=== PATIENT | female | born 1960 | race Caucasian/White ===

== ENCOUNTER 2018-03-08 18:04 | Emergency (ER) | payer MEDICAID ==
[~2018-03-08] VITALS: Ht 162.6 cm; Wt 56.8 kg
[~2018-03-08 18:04] MED LIST: FAMO20TA44 PO; IBUP-1984 PO; LORA1TAB PO; OMEP20CA10 PO; SUCR1ORA2 PO
[2018-03-08] MEDS ORDERED: LORazepam 2 mg/ml vial IV ONE ×4 (18:25→20:10)
[2018-03-08] MEDS ORDERED: ondansetron/PF 4mg/2ml inj IV ONE (18:25)
[2018-03-08] MEDS ORDERED: normal saline 1000ML IV soln IV ONE (18:25)
[2018-03-08 18:27] LABS: CLARITY,URINE SLIGHTLY CLOUDY (Clear); COLOR,URINE YELLOW (Yellow); GLUCOSE, URINE NEGATIVE (Neg); KETONES,URINE 15 mg/dl (Neg); LEUKOCYTE ESTERASE ,URINE NEGATIVE (Neg); NITRITES, URINE NEGATIVE (Neg); OCCULT BLOOD,URINE NEGATIVE (Neg); PROTEIN,URINE TRACE mg/dl (Neg)
[2018-03-08 18:28] LABS: UA COLLECTION TYPE CLN CATCH MIDSTREAM
[2018-03-08 18:32] LABS: MUCUS STRANDS MODERATE /LPF (Neg); SQUAMOUS EPITHELIAL CELL,UR MODERATE /LPF (FEW)
[2018-03-08 18:33] LABS: BACTERIA,URINE FEW /HPF (Neg); RBC,URINE 0-2 /HPF (0-2); WBC,URINE 0-4 /HPF (0-4)
[2018-03-08 18:57] LABS: PROTHROMBIN TIME 10.7 SECONDS (9.0-12.0)
[2018-03-08 18:59] LABS: HEMATOCRIT 32.2 % (35.0-45.0); HEMOGLOBIN 10.1 g/dl (12.0-16.0); MEAN CORPUSCULAR HEMOGLOBIN 23.7 PG (27.0-31.0); MEAN CORPUSCULAR HGB CONC 31.4 % (33.0-36.5); MEAN CORPUSCULAR VOLUME 75.4 FL (78-98); MEAN PLATELET VOLUME 7.1 FL (7.4-10.4); PLATELET COUNT 104 X10'3 (140-440); RED BLOOD COUNT 4.27 X10'6 (4.20-5.60); RED CELL DISTRIBUTION WIDTH 25.7 % (11.5-14.5); WHITE BLOOD COUNT 3.4 X10'3 (4.5-11.0)
[2018-03-08 19:03] LABS: ALANINE AMINOTRANSFERASE 55 U/L (12-78); ALBUMIN 4.4 G/DL (3.4-5.0); ALBUMIN/GLOBULIN RATIO 1.2 (1.1-1.5); ALKALINE PHOSPHATASE 99 IU/L (46-116); AMYLASE 86 U/L (25-115); ANION GAP 17 (8-16); ASPARTATE AMINO TRANSFERASE 101 U/L (10-37); BLOOD UREA NITROGEN 7 MG/DL (7-18); BUN/CREATININE RATIO 11.1 (6.6-38.0); CALCIUM 9.8 MG/DL (8.5-10.1); CHLORIDE 100 MMOL/L (99-107); CREATININE 0.63 MG/DL (0.40-0.90); ETHANOL 0.073 GM/DL (0.0-0.010); GLUCOSE 115 MG/DL (70-104); LIPASE 164 U/L (73-393); POTASSIUM 3.3 MMOL/L (3.5-5.1); SODIUM 140 MMOL/L (135-145); TOTAL CARBON DIOXIDE 23.2 MMOL/L (24-32); TOTAL PROTEIN 8.1 G/DL (6.4-8.2); eGFR > 90 ML/MIN
[2018-03-08 19:14] VITALS: BP 145/98
[2018-03-08] MEDS ORDERED: potassium Cl oral solution 20 MEQ/15 ML PO ONE (19:25)
[2018-03-08 19:44] LABS: ANISOCYTOSIS 3+; NUCLEATED RED BLOOD CELLS 1 /100WBC (0-0); PLATELET ESTIMATE DECREASED; TOTAL CELLS COUNTED 100
[2018-03-08 19:46] LABS: ACANTHOCYTES FEW; HYPOCHROMASIA 1+; POIKILOCYTOSIS 1+; TARGET CELLS 1+
[2018-03-08 19:59] LABS: CREATINE KINASE 76 U/L (26-192)
[2018-03-08] MEDS ORDERED: folic acid 1mg/0.2ml inj IV ONE (20:10)
[2018-03-08] MEDS ORDERED: LORA-269 PO (20:10)
[2018-03-08] MEDS ORDERED: thiamine 100mg/ml 2ml inj. IV ONE (20:10)
== END 2018-03-08 21:08 | disposition home or self-care (01) ==
LOC: ER 18:04
DX: F10.239 Alcohol dependence with withdrawal, unspecified (principal); Z98.890 Other specified postprocedural states; Z88.5 Allergy status to narcotic agent; Z79.899 Other long term (current) drug therapy; Y90.0 Blood alcohol level of less than 20 mg/100 ml
CPT/HCPCS: 36415; 80053; 80320; 81001; 82150; 82550; 83605; 83690; 85025; 85610; 93005; 96361; 96374; 96375; 96376; 99291; J2060; J2405; J3411; J3490; J7030

== ENCOUNTER 2020-09-25 06:46 | Day surgery (SDC) | payer MEDICAID ==
[~2020-09-25] VITALS: Ht 162.6 cm; Wt 60.6 kg
[~2020-09-25 06:46] MED LIST changes: +ASPI-1 PO; -FAMO20TA44 PO; +FLUO-1 PO; -IBUP-1984 PO; -LORA1TAB PO; -OMEP20CA10 PO; -SUCR1ORA2 PO; +TRAZ-251 PO
[2020-09-25] MEDS ORDERED: albumin 25% 100mL bottle x 1 IV PRN (07:10)
[2020-09-25 08:07] VITALS: BP 109/78
[2020-09-25] MEDS ORDERED: GABA-534 PO (08:30)
[2020-09-25 09:04] VITALS: BP 109/78
== END 2020-09-25 09:04 | disposition home or self-care (01) ==
LOC: SSTAY O 06:46
PROVIDERS: ATTEND Radiology Vascular & Interventional Radiology
DX: K70.31 Alcoholic cirrhosis of liver with ascites (principal); R14.0 Abdominal distension (gaseous); Z96.659 Presence of unspecified artificial knee joint; Z72.89 Other problems related to lifestyle; Z88.5 Allergy status to narcotic agent; Z79.82 Long term (current) use of aspirin; Z79.899 Other long term (current) drug therapy
CPT/HCPCS: 76705

== ENCOUNTER 2020-12-09 12:23 | Day surgery (SDC) | payer MEDICAID ==
[2020-12-02 15:50] LABS: BASOPHILS % (AUTO) 0.6 % (0-1); EOSINOPHILS % (AUTO) 0.7 % (0-6); LYMPHOCYTES # (AUTO) 1.4 X10'3 (1.1-4.8); LYMPHOCYTES % (AUTO) 26.3 % (21-51); MEAN CORPUSCULAR HGB CONC 33.9 g/dL (33.0-36.5); MEAN CORPUSCULAR VOLUME 94.6 FL (78-98); MEAN PLATELET VOLUME 7.3 FL (7.4-10.4); MONOCYTES # (AUTO) 0.6 X10'3 (0-0.9); NEUTROPHILS # (AUTO) 3.2 X10'3 (1.8-7.7); NEUTROPHILS % (AUTO) 60.4 % (42-75); PRE OP HEMATOCRIT 38.5 % (35.0-45.0); PRE OP PLATELET COUNT 138 X10'3 (140-440); RED BLOOD COUNT 4.07 X10'6 (4.20-5.60); RED CELL DISTRIBUTION WIDTH 15.3 % (11.5-14.5)
[2020-12-02 15:52] LABS: PRE OP INR 1.2 INR; PRE OP PROTIME 12.1 SECONDS (9.0-12.0)
[2020-12-02 15:57] LABS: ALBUMIN/GLOBULIN RATIO 0.9 (1.1-1.5); ALKALINE PHOSPHATASE 129 IU/L (46-116); BLOOD UREA NITROGEN 9 MG/DL (7-18); CALCIUM 9.4 MG/DL (8.5-10.1); CHLORIDE 103 MMOL/L (99-107); PRE OP ALT 31 U/L (30-65); PRE OP ANION GAP 7 (8-16); PRE OP AST 36 U/L (10-37); PRE OP BILIRUB, TOTAL 0.9 MG/DL (0.0-1.0); PRE OP GLUCOSE 74 MG/DL (70-104); PRE OP POTASSIUM 3.7 MMOL/L (3.4-5.1); PRE OP SODIUM 138 MMOL/L (135-145); TOTAL CARBON DIOXIDE 27.7 MMOL/L (24-32); TOTAL PROTEIN 8.3 G/DL (6.4-8.2); eGFR > 90 ML/MIN
[~2020-12-09] VITALS: Ht 162.6 cm; Wt 62.1 kg
[2020-12-09] VITALS (12 sets, daily range): BP systolic 119–140; BP diastolic 70–83
[~2020-12-09 12:23] MED LIST changes: -ASPI-1 PO; -FLUO-1 PO; +GABA-534 PO; +acetaminophen 1,000mg/100ml IV 100 ML IV ONE; +ceFAZolin 2gm in dextrose, iso 50 ML IV ONE; +famotidine 20mg tablet PO ONE; +ringers solution, lacted 1,000 ML IV SCH
[2020-12-09] MEDS ORDERED: LIDOcaine 1% (10mg/ml) 2ml vial ONE (12:54)
[2020-12-09] MEDS ORDERED: LIDOcaine 1% 30ml preserv. free vial ONE (13:07)
[2020-12-09] MEDS ORDERED: BUPIVAcaine/PF 2.5mg/ml (0.25%) 10ml vial ONE (13:07)
[2020-12-09] MEDS ORDERED: BUPIVAcaine/PF 2.5 mg/ml (0.25%) 30ml vial ONE (13:08)
[2020-12-09] MEDS ORDERED: BUPIVACAINE liposomal/PF 13.3 MG/ML vial IM ONE (13:08)
[2020-12-09] MEDS ORDERED: ondansetron/PF 4mg/2ml inj IV PRN (14:25)
[2020-12-09] MEDS ORDERED: ringers solution, lacted 1,000 ML IV SCH (14:25)
[2020-12-09] MEDS ORDERED: morphine 4 MG/ML inj SYRINge IV PRN (14:25)
[2020-12-09] MEDS ORDERED: morphine 2 MG/ML inj. syringe IV PRN (14:25)
[2020-12-09] MEDS ORDERED: meperidine/PF 25mg/ml syringe IV PRN ×3 (14:25)
[2020-12-09] MEDS ORDERED: proCHLORperazine 10 MG/2 ml inj IV PRN (14:25)
[2020-12-09] MEDS ORDERED: ondansetron/PF 4mg/2ml inj ONE (15:10)
[2020-12-09] MEDS ORDERED: sevoflurane 250ml liquid IH ONE (15:10)
[2020-12-09] MEDS ORDERED: fentaNYL/PF 50MCG/1 ML 2ML syringe ONE (15:15)
[2020-12-09] MEDS ORDERED: midazolam 2 mg/2 ml injection ONE (15:15)
[2020-12-09] MEDS ORDERED: propofol inj 20 ML IV ONE (15:40)
[2020-12-09] MEDS ORDERED: LIDOcaine 2% (20mg/ml) 5ml vial ONE (15:40)
--- NOTE | 2020-12-09 16:00 | NUR ---
Received from OR via [facility] , accompanied by Anesthesiologist DR CARR and report given by Anesthesiologist. PATIENT WAKING UP, DENIES PAIN, V/S WNL, NEUROVASCULAR CHECKS INTACT, 20G PIV LUE, SCD ON, DERMABOND TO SMALL INCISION NEAR BELLYBUTTON OF ABDOMEN-CDI.
[2020-12-09] MEDS ORDERED: oxyCODONE/APAP 10/325mg tablet PO PRN (16:10)
[2020-12-09] MEDS ORDERED: oxyCODONE/APAP 5-325mg tablet PO PRN (16:10)
--- NOTE | 2020-12-09 17:40 | NUR ---
PATIENT A&OX4, PAIN MANAGEABLE-GIVEN 1 PO PERCOCET FOR RIDE HOME, V/S WNL, NEUROVASCULAR CHECKS INTACT, 20G PIV LUE D/C, SCD OFF, DERMABOND TO ABD SITE-CDI. PT ABLE TO AMBULATE TO BATHROOM TO VOID W/O DIFFICULTY PRIOR TO D/C. I HAVE REVIEWED D/C INSTRUCTIONS (PT SENT WITH PAPER SCRIPT FOR PAIN MEDS) WITH PATIENT WHO HAS VERBALIZED UNDERSTANDING. PATIENT WAS D/C HOME WITH ALL BELONGINGS AND FAMILY GAVE TRANSPORT HOME.
== END 2020-12-09 17:40 | disposition home or self-care (01) ==
LOC: PAS 12:23
PROVIDERS: ATTEND Surgery
DX: K43.6 Other and unspecified ventral hernia with obstruction, without gangrene (principal); F10.20 Alcohol dependence, uncomplicated; K74.60 Unspecified cirrhosis of liver; F41.9 Anxiety disorder, unspecified; Z72.89 Other problems related to lifestyle; Z88.5 Allergy status to narcotic agent; Z96.651 Presence of right artificial knee joint; Z20.822 Contact with and (suspected) exposure to COVID-19; Z98.890 Other specified postprocedural states; Z79.01 Long term (current) use of anticoagulants; Z79.899 Other long term (current) drug therapy; Z87.19 Personal history of other diseases of the digestive system; Z80.1 Family history of malignant neoplasm of trachea, bronchus and lung
CPT/HCPCS: 36415; 49561; 80053; 82948; 85025; 85610; 85730; 87635; 93005; C9290; J0131; J2001; J2175; J2250; J2405; J2704; J3010; J3490; A4215; A4618; A7000; J7120

== ENCOUNTER 2021-01-18 06:22 | Inpatient (IN) | payer MEDICAID ==
[~2021-01-18] VITALS: Ht 162.6 cm; Wt 63.6 kg
[~2021-01-18 06:22] MED LIST changes: -acetaminophen 1,000mg/100ml IV 100 ML IV ONE; -ceFAZolin 2gm in dextrose, iso 50 ML IV ONE; -famotidine 20mg tablet PO ONE; -ringers solution, lacted 1,000 ML IV SCH
[2021-01-18] MEDS ORDERED: ondansetron/PF 4mg/2ml inj IV ONE (07:00)
[2021-01-18] MEDS ORDERED: magnesium 2GM in 50ml NS 50 ML IV ONE (07:00)
[2021-01-18] MEDS ORDERED: normal saline 1000ML IV soln IVB ONE (07:00)
[2021-01-18] MEDS ORDERED: thiamine inj. 100 MG in normal saline 100ml IV soln 99 ML IV ONE (07:00)
[2021-01-18 07:27] LABS: PARTIAL THROMBOPLASTIN TIME 27 SECONDS (22-32)
[2021-01-18 07:29] LABS: ALANINE AMINOTRANSFERASE 85 U/L (12-78); ALBUMIN 3.4 G/DL (3.4-5.0); ALBUMIN/GLOBULIN RATIO 0.9 (1.1-1.5); ALKALINE PHOSPHATASE 171 IU/L (46-116); ANION GAP 16 (8-16); ASPARTATE AMINO TRANSFERASE 147 U/L (10-37); BILIRUBIN,TOTAL 1.3 MG/DL (0.1-1.0); BLOOD UREA NITROGEN 18 MG/DL (7-18); BUN/CREATININE RATIO 26.1 (6.6-38.0); CALCIUM 8.8 MG/DL (8.5-10.1); CHLORIDE 103 MMOL/L (99-107); CREATININE 0.69 MG/DL (0.40-0.90); ETHANOL 0.275 GM/DL (0.0-0.010); GLUCOSE 154 MG/DL (70-104); LIPASE 157 U/L (73-393); MAGNESIUM 1.6 MG/DL (1.5-2.4); POTASSIUM 3.7 MMOL/L (3.5-5.1); SODIUM 142 MMOL/L (135-145); TOTAL CARBON DIOXIDE 22.7 MMOL/L (24-32); TOTAL PROTEIN 7.4 G/DL (6.4-8.2); eGFR 86 ML/MIN
[2021-01-18] MEDS ORDERED: phenobarbital inj 260 MG in normal saline 100ml IV soln 100 ML IV ONE (07:30)
[2021-01-18] MEDS ORDERED: octreotide inj. 1,250 MCG in normal saline 250ml IV soln 250 ML IV ONE (07:30)
[2021-01-18 07:40] LABS: EOSINOPHILS % (AUTO) 0.3 % (0-6); HEMATOCRIT 32.4 % (35.0-45.0); LYMPHOCYTES % (AUTO) 20.5 % (21-51); MEAN CORPUSCULAR HEMOGLOBIN 32.6 PG (27.0-31.0); MEAN CORPUSCULAR HGB CONC 33.9 g/dL (33.0-36.5); MEAN CORPUSCULAR VOLUME 96.4 FL (78-98); MEAN PLATELET VOLUME 7.9 FL (7.4-10.4); MONOCYTES # (AUTO) 0.6 X10'3 (0-0.9); MONOCYTES % (AUTO) 12.2 % (2-12); NEUTROPHILS # (AUTO) 3.1 X10'3 (1.8-7.7); PLATELET COUNT 74 X10'3 (140-440); RED BLOOD COUNT 3.36 X10'6 (4.20-5.60); RED CELL DISTRIBUTION WIDTH 15.3 % (11.5-14.5); WHITE BLOOD COUNT 4.7 X10'3 (4.5-11.0)
[2021-01-18] MEDS ORDERED: pantoprazole 40 MG vial IV ONE (08:00)
[2021-01-18] MEDS ORDERED: famotidine/PF 10 mg/ml inj IV ONE (08:00)
[2021-01-18] MEDS ORDERED: thiamine inj. 100 MG in normal saline 100ml IV soln 100 ML IV ONE ×2 (08:00→09:15)
[2021-01-18 08:41] LABS: COLOR,URINE YELLOW (Yellow); GLUCOSE, URINE NEGATIVE (Neg); KETONES,URINE 15 mg/dl (Neg); LEUKOCYTE ESTERASE ,URINE SMALL (Neg); NITRITES, URINE NEGATIVE (Neg); OCCULT BLOOD,URINE NEGATIVE (Neg); PH,URINE 6.5 (4.8-8.0); PROTEIN,URINE NEGATIVE (Neg); URINE HCG NEGATIVE (NEG)
[2021-01-18 08:43] LABS: CLARITY,URINE SLIGHTLY CLOUDY (Clear); UA COLLECTION TYPE VOIDED
[2021-01-18 08:55] LABS: BACTERIA,URINE 1+ /HPF (Neg); MUCUS STRANDS FEW /LPF (Neg); RBC,URINE NONE SEEN /HPF (0-2); SQUAMOUS EPITHELIAL CELL,UR MODERATE /LPF (FEW); TRANSITIONAL EPI CELLS,URINE FEW /HPF
[2021-01-18] MEDS ORDERED: LORazepam 2 mg/ml vial IV PRN (09:15)
[2021-01-18] MEDS ORDERED: magnesium 4gm in 100ml NS 100 ML IV PRN (09:15)
[2021-01-18] MEDS ORDERED: ondansetron/PF 4mg/2ml inj IV PRN (09:15)
[2021-01-18] MEDS ORDERED: haloperidol lactate 5mg/ml inj IM PRN (09:15)
[2021-01-18] MEDS ORDERED: mag hydrox/Alum hydrox/simeth 30ml oral suspension PO PRN (09:15)
[2021-01-18] MEDS ORDERED: potassium Cl 20 mEq SR tablet PO PRN ×2 (09:15)
[2021-01-18] MEDS ORDERED: acetaminophen 325mg tablet PO PRN (09:15)
[2021-01-18] MEDS ORDERED: magnesium 2GM in 50ml NS 50 ML IV PRN (09:15)
[2021-01-18] MEDS ORDERED: magnesium hydroxide 30ml (MOM) UD suspension PO PRN (09:15)
[2021-01-18] MEDS ORDERED: potassium Cl 40MEQ/1/2NS 520ml 520 ML IV PRN ×2 (09:15)
[2021-01-18] MEDS ORDERED: proCHLORperazine 10 MG/2 ml inj IV ONE (09:30)
[2021-01-18] MEDS ORDERED: folic acid 1mg tablet PO SCH (10:30)
[2021-01-18] MEDS ORDERED: PANT20TA18 PO (10:45)
[2021-01-18] MEDS: pantoprazole 40MG/NS 100ML BAG 100 ML IV SCH ×4 (11:00→21:00)
[2021-01-18] MEDS ORDERED: pantoprazole 40MG/NS 100ML BAG 100 ML IV SCH (11:00)
[2021-01-18] MEDS: folic acid 1mg/0.2ml inj IV SCH (11:00)
--- NOTE | 2021-01-18 11:00 | NUR ---
PATIENT AXOX4, QUIROGA, STARTED VOMITING SCANT BURGUNDY VOMIT, BUT AN EMESIS BAG WITH BURGUNDY AND JUAN BLOOD WAS IN ROOM: ABOUT 300ML
[2021-01-18] MEDS: proCHLORperazine 10 MG/2 ml inj IV PRN ×2 (11:06→20:18)
[2021-01-18] MEDS: LORazepam 2 mg/ml vial IV PRN ×2 (11:06→20:18)
[2021-01-18 12:50] LABS: HEMATOCRIT 27.1 % (35.0-45.0); MEAN CORPUSCULAR HEMOGLOBIN 32.7 PG (27.0-31.0); MEAN CORPUSCULAR HGB CONC 33.2 g/dL (33.0-36.5); MEAN CORPUSCULAR VOLUME 98.7 FL (78-98); RED BLOOD COUNT 2.74 X10'6 (4.20-5.60); RED CELL DISTRIBUTION WIDTH 15.5 % (11.5-14.5); WHITE BLOOD COUNT 3.4 X10'3 (4.5-11.0)
[2021-01-18 12:55] LABS: PLATELET COUNT 44 X10'3 (140-440)
--- NOTE | 2021-01-18 19:56 | NUR ---
PHONE REPORT TO CIARAN GREEN ORTHO. PATIENT TO GO TO ROOM 0359Q WITH RN AND ON MONITOR
--- NOTE | 2021-01-18 20:00 | NUR ---
SPOKE TO DR SAELS REGARDING PATIENT: ORDERS FOR ROCEPHIN NOW AND DAILY AND ONE UNIT PRBC
[2021-01-18] MEDS ORDERED: CefTRIAXone/D5W-Rocephin 1gm 50 ML IV ONE (20:05)
--- NOTE | 2021-01-18 20:24 | NUR ---
ROBBIN GREEN TAKING PATIENT UP TO ORTHO FLOOR ON MONITOR PATIENT BELONGINGS: CLOTHES SHE IS WEARING: PANTS, T SHIRT, SOCKS, WELL LONG SLEEVE SHIRT, AND SHOES PATIENT IS WEARING 2 RINGS ONE WITH 2 COLORED STONES, ONE WITH 3 CLEAR STONES
[2021-01-18 20:35] VITALS: BP 138/78
[2021-01-18] MEDS: octreotide inj. 500 MCG in normal saline 100ml IV soln 100 ML IV SCH (21:00)
--- NOTE | 2021-01-18 21:03 | NUR ---
RC'D VERBAL REPORT FROM JOSEPH ED/RN AND ASSUMED CARE OF PATIENT UPON ARRIVAL ON ORTHO/NEURO FLOOR. PATIENT TRANSFERED INTO HOSPITAL BED, VITAL SIGNS TAKEN AND INITIAL ASSMT STARTED. WILL REVIEW NEW ORDERS ON PATIENT AND START AN ADDITIONAL PIV. CALL LIGHT IN REACH.
[2021-01-18 21:09] LABS: HEMATOCRIT 27.9 % (35.0-45.0); HEMOGLOBIN 9.3 g/dl (12.0-16.0); MEAN CORPUSCULAR HEMOGLOBIN 32.6 PG (27.0-31.0); MEAN CORPUSCULAR HGB CONC 33.4 g/dL (33.0-36.5); MEAN CORPUSCULAR VOLUME 97.6 FL (78-98); MEAN PLATELET VOLUME 7.6 FL (7.4-10.4); RED BLOOD COUNT 2.86 X10'6 (4.20-5.60); RED CELL DISTRIBUTION WIDTH 15.5 % (11.5-14.5); WHITE BLOOD COUNT 3.1 X10'3 (4.5-11.0)
[2021-01-18 21:22] LABS: PLATELET COUNT 37 X10'3 (140-440)
[2021-01-18 23:12] VITALS: BP 130/82
[2021-01-18 23:28] VITALS: BP 120/70
--- NOTE | 2021-01-18 23:35 | NUR ---
PROTONIX AND SANDOSTATIN INFUSING WHEN PATIENT ARRIVED FROM ED. 3RD LINE ACCESSED IN LFA AND UNIT OF BLOOD INFUSING ORDERED. ROCEPHIN WILL BE GIVEN WHEN BLOOD HAS INFUSED.
[2021-01-19 00:09] VITALS: BP 130/68
[2021-01-19 00:38] VITALS: BP 136/77
[2021-01-19 01:19] VITALS: BP 131/66
[2021-01-19 02:00] VITALS: BP 131/66
[2021-01-19] MEDS: pantoprazole 40MG/NS 100ML BAG 100 ML IV SCH ×5 (02:44→19:30)
[2021-01-19 05:54] LABS: HEMATOCRIT 31.5 % (35.0-45.0); HEMOGLOBIN 10.6 g/dl (12.0-16.0); MEAN CORPUSCULAR HEMOGLOBIN 32.1 PG (27.0-31.0); MEAN CORPUSCULAR HGB CONC 33.5 g/dL (33.0-36.5); MEAN CORPUSCULAR VOLUME 95.8 FL (78-98); RED BLOOD COUNT 3.29 X10'6 (4.20-5.60); RED CELL DISTRIBUTION WIDTH 16.2 % (11.5-14.5); WHITE BLOOD COUNT 3.4 X10'3 (4.5-11.0)
[2021-01-19 06:01] LABS: PLATELET COUNT 35 X10'3 (140-440)
[2021-01-19 06:07] LABS: ALANINE AMINOTRANSFERASE 56 U/L (12-78); ALBUMIN 3.1 G/DL (3.4-5.0); ALBUMIN/GLOBULIN RATIO 0.9 (1.1-1.5); ALKALINE PHOSPHATASE 120 IU/L (46-116); AMYLASE 317 U/L (25-115); ANION GAP 10 (8-16); ASPARTATE AMINO TRANSFERASE 82 U/L (10-37); BILIRUBIN,TOTAL 1.5 MG/DL (0.1-1.0); BLOOD UREA NITROGEN 16 MG/DL (7-18); BUN/CREATININE RATIO 25.4 (6.6-38.0); CALCIUM 8.2 MG/DL (8.5-10.1); CHLORIDE 106 MMOL/L (99-107); CREATININE 0.63 MG/DL (0.40-0.90); GLUCOSE 128 MG/DL (70-104); LIPASE 53 U/L (73-393); MAGNESIUM 1.8 MG/DL (1.5-2.4); PHOSPHORUS 2.4 MG/DL (2.3-4.5); SODIUM 142 MMOL/L (135-145); TOTAL CARBON DIOXIDE 26.4 MMOL/L (24-32); TOTAL PROTEIN 6.4 G/DL (6.4-8.2); eGFR > 90 ML/MIN
--- NOTE | 2021-01-19 06:44 | NUR ---
Problems reprioritized. Patient report given, questions answered & plan of care reviewed with JOE GREEN.
[2021-01-19] MEDS: K and/or MAG REPLACEMENT MC SCH ×3 (08:00→19:49)
[2021-01-19] MEDS ORDERED: folic acid inj. 2 MG, thiamine inj. 100 MG, MVI, adult No.4 with vit. K 10 ML in dextro... IV SCH ×4 (08:00)
[2021-01-19] MEDS ORDERED: pneumococcal 23-VAL P-sac vacc 25 mcg/0.5ml vial IMVAC ONE (10:00)
[2021-01-19] MEDS ORDERED: traZODone 50mg tablet PO PRN (10:45)
[2021-01-19] MEDS: folic acid 1mg/0.2ml inj IV SCH (10:51)
[2021-01-19] MEDS: LORazepam 2 mg/ml vial IV PRN ×4 (11:00→23:27)
[2021-01-19] MEDS: thiamine inj. 100 MG in normal saline 100ml IV soln 100 ML IV SCH (11:15)
[2021-01-19 12:18] LABS: HEMATOCRIT 32.2 % (35.0-45.0); HEMOGLOBIN 10.9 g/dl (12.0-16.0); MEAN CORPUSCULAR HEMOGLOBIN 32.3 PG (27.0-31.0); MEAN CORPUSCULAR VOLUME 95.3 FL (78-98); MEAN PLATELET VOLUME 7.9 FL (7.4-10.4); RED BLOOD COUNT 3.38 X10'6 (4.20-5.60); RED CELL DISTRIBUTION WIDTH 16.4 % (11.5-14.5); WHITE BLOOD COUNT 3.3 X10'3 (4.5-11.0)
[2021-01-19 12:36] LABS: PLATELET COUNT 34 X10'3 (140-440)
[2021-01-19] MEDS: octreotide inj. 500 MCG in normal saline 100ml IV soln 100 ML IV SCH (15:54)
[2021-01-19] MEDS: gabapentin 400mg capsule PO SCH ×2 (15:54→23:27)
[2021-01-19 18:00] VITALS: BP 128/83
[2021-01-19] MEDS ORDERED: CefTRIAXone/D5W-Rocephin 1gm 50 ML IV SCH (20:00)
[2021-01-19 20:22] LABS: HEMATOCRIT 32.3 % (35.0-45.0); HEMOGLOBIN 10.9 g/dl (12.0-16.0); MEAN CORPUSCULAR HEMOGLOBIN 32.3 PG (27.0-31.0); MEAN CORPUSCULAR HGB CONC 33.8 g/dL (33.0-36.5); MEAN CORPUSCULAR VOLUME 95.6 FL (78-98); MEAN PLATELET VOLUME 7.7 FL (7.4-10.4); RED BLOOD COUNT 3.38 X10'6 (4.20-5.60); RED CELL DISTRIBUTION WIDTH 16.2 % (11.5-14.5); WHITE BLOOD COUNT 3.2 X10'3 (4.5-11.0)
[2021-01-19 20:33] LABS: PLATELET COUNT 36 X10'3 (140-440)
[2021-01-19 22:00] VITALS: BP 135/83
[2021-01-20] MEDS: pantoprazole 40MG/NS 100ML BAG 100 ML IV SCH ×2 (02:37→08:15)
[2021-01-20 06:00] VITALS: BP 152/62
[2021-01-20 06:06] LABS: HEMATOCRIT 34.1 % (35.0-45.0); HEMOGLOBIN 11.4 g/dl (12.0-16.0); MEAN CORPUSCULAR HEMOGLOBIN 32.2 PG (27.0-31.0); MEAN CORPUSCULAR HGB CONC 33.5 g/dL (33.0-36.5); MEAN CORPUSCULAR VOLUME 96.2 FL (78-98); MEAN PLATELET VOLUME 8.2 FL (7.4-10.4); RED BLOOD COUNT 3.55 X10'6 (4.20-5.60); WHITE BLOOD COUNT 3.4 X10'3 (4.5-11.0)
[2021-01-20 06:09] LABS: PLATELET COUNT 39 X10'3 (140-440)
[2021-01-20 06:17] LABS: ALANINE AMINOTRANSFERASE 54 U/L (12-78); ALBUMIN 3.4 G/DL (3.4-5.0); ALBUMIN/GLOBULIN RATIO 0.9 (1.1-1.5); ALKALINE PHOSPHATASE 122 IU/L (46-116); AMYLASE 108 U/L (25-115); ANION GAP 8 (8-16); ASPARTATE AMINO TRANSFERASE 80 U/L (10-37); BILIRUBIN,TOTAL 1.8 MG/DL (0.1-1.0); BLOOD UREA NITROGEN 10 MG/DL (7-18); BUN/CREATININE RATIO 14.9 (6.6-38.0); CALCIUM 8.8 MG/DL (8.5-10.1); CHLORIDE 100 MMOL/L (99-107); CREATININE 0.67 MG/DL (0.40-0.90); GLUCOSE 102 MG/DL (70-104); LIPASE 55 U/L (73-393); MAGNESIUM 1.9 MG/DL (1.5-2.4); PHOSPHORUS 2.7 MG/DL (2.3-4.5); POTASSIUM 3.9 MMOL/L (3.5-5.1); SODIUM 136 MMOL/L (135-145); eGFR 89 ML/MIN
--- NOTE | 2021-01-20 06:35 | NUR ---
Report given to Reta GREEN.
--- NOTE | 2021-01-20 06:35 | NUR ---
Patient in room ORTHO 4024. I have received report from Ju GREEN and had the opportunity to ask questions and assume patient care.
--- NOTE | 2021-01-20 06:46 | NUR ---
Patient in room ORTHO 4024. I have received report from NORMA Dodd and had the opportunity to ask questions and assume patient care.
[2021-01-20] MEDS: gabapentin 400mg capsule PO SCH (07:55)
[2021-01-20] MEDS: folic acid 1mg/0.2ml inj IV SCH (07:56)
[2021-01-20] MEDS: thiamine inj. 100 MG in normal saline 100ml IV soln 100 ML IV SCH (07:59)
[2021-01-20] MEDS: K and/or MAG REPLACEMENT MC SCH (08:00)
--- NOTE | 2021-01-20 10:11 | NUR ---
PAGER ID: [phone] MESSAGE: Kimi Capellan 24B- Pt insist she wants to go home dhara. She feels better and has not had any bloody emesis or stools. If she does not get DC she will go AMA but she has questions for you before DC. Thank you. Reta
[2021-01-20 10:18] VITALS: BP 150/81
[2021-01-20] MEDS ORDERED: PANT40SU2 PO (10:43)
--- NOTE | 2021-01-20 15:41 | NUR ---
Pt Dc to home with her friend. Pt is A & Ox4. Pt stats she feels better and had not have a bloody emesis or stool. Pt states she feels good and would of went home last night but there was no one to pick her up. pt educated on the risks of GI bleeding but pt refused teachings. pt says she is tired of sitting here in the hospital and wants to go home. Pt asked to have Dr Lilliam alston to see if she can go home with Ativan since she feels ot makes her feel better. Pt said she would wait for for a bit and if does not show up by 1o-11 she was going to Dc herself and go home. Dr Newman called after paged and stated GI Doc was contacted and waiting to see if testing is needed in order to Dc pt home. 1100, pt changed to regular diet and told that Dr Newman would round soon. pt stated she was caitlin home AMA. Dr newman was paged and said she needed to stay pt refuse. Pt refused education, Iv cath removed intact. Pt got dressed and walk to the front where her friend pick her up. Dr Lilliam gallegos as well as charge nurse.
== END 2021-01-20 11:15 | disposition left against medical advice (07) | DRG 253 ==
LOC: ER 06:22 → ED HOLD 09:11 → EDBEDREQ 18:19 → ORTHO 4S 20:35
PROVIDERS: ADMIT Family Medicine; ATTEND Family Medicine
PROC: 30233N1 Transfusion of Nonautologous Red Blood Cells into Peripheral Vein, Percutaneous Approach (ICD-10-PCS; principal; 2021-01-18)
DX: K92.0 Hematemesis (principal); D68.9 Coagulation defect, unspecified; D69.6 Thrombocytopenia, unspecified; K72.90 Hepatic failure, unspecified without coma; K74.60 Unspecified cirrhosis of liver; R74.01 Elevation of levels of liver transaminase levels; Z53.29 Procedure and treatment not carried out because of patient's decision for other reasons; D64.9 Anemia, unspecified; Z96.651 Presence of right artificial knee joint; F10.920 Alcohol use, unspecified with intoxication, uncomplicated; F41.9 Anxiety disorder, unspecified; R94.5 Abnormal results of liver function studies; K29.80 Duodenitis without bleeding; Z87.11 Personal history of peptic ulcer disease; Z88.5 Allergy status to narcotic agent; Z79.899 Other long term (current) drug therapy
CPT/HCPCS: 36415; 36430; 71045; 74176; 80053; 80320; 81001; 81025; 82150; 82948; 83690; 83735; 84100; 85025; 85027; 85610; 85730; 86885; 86900; 86901; 86920; 87081; 87088; 90732; 93005; 97116; 97161; 97530; 99285; C9113; G0378; J0696; J0780; J2060; J2354; J2405; J2560; J3411; J3475; J3490; J7030; J7050; P9016

== ENCOUNTER 2021-12-08 04:46 | Inpatient (IN) | payer MEDICAID ==
[~2021-12-08] VITALS: Ht 162.6 cm; Wt 63.6 kg
[~2021-12-08 04:46] MED LIST changes: +PANT40SU2 PO
[2021-12-08] MEDS ORDERED: pantoprazole 40MG/D5 100ML BAG 100 ML IV ONE (05:05)
[2021-12-08] MEDS ORDERED: octreotide 100mcg/1 ml ampule IV ONE (05:05)
[2021-12-08] MEDS ORDERED: octreotide inj. 500 MCG in normal saline 100ml IV soln 97.5 ML IV SCH (05:05)
[2021-12-08] MEDS ORDERED: pantoprazole IV 80 MG in normal saline 100ml IV soln 100 ML IV ONE (05:05)
[2021-12-08] MEDS ORDERED: pantoprazole 40MG/NS 100ML BAG 100 ML IV ONE ×2 (05:09→05:25)
[2021-12-08 05:23] LABS: BASOPHILS % (AUTO) 0.5 % (0-1); EOSINOPHILS % (AUTO) 0.4 % (0-6); HEMATOCRIT 36.8 % (35.0-45.0); HEMOGLOBIN 12.6 g/dl (12.0-16.0); LYMPHOCYTES # (AUTO) 1.4 X10'3 (1.1-4.8); LYMPHOCYTES % (AUTO) 33.9 % (21-51); MEAN CORPUSCULAR HEMOGLOBIN 32.3 PG (27.0-31.0); MEAN CORPUSCULAR HGB CONC 34.2 g/dL (33.0-36.5); MEAN CORPUSCULAR VOLUME 94.6 FL (78-98); MEAN PLATELET VOLUME 6.9 FL (7.4-10.4); MONOCYTES # (AUTO) 0.6 X10'3 (0-0.9); MONOCYTES % (AUTO) 13.5 % (2-12); NEUTROPHILS # (AUTO) 2.1 X10'3 (1.8-7.7); NEUTROPHILS % (AUTO) 51.7 % (42-75); PLATELET COUNT 99 X10'3 (140-440); RED BLOOD COUNT 3.89 X10'6 (4.20-5.60); RED CELL DISTRIBUTION WIDTH 16.3 % (11.5-14.5); WHITE BLOOD COUNT 4.1 X10'3 (4.5-11.0)
[2021-12-08 05:33] LABS: ALANINE AMINOTRANSFERASE 48 U/L (12-78); ALBUMIN 3.6 G/DL (3.4-5.0); ALKALINE PHOSPHATASE 101 IU/L (46-116); ANION GAP 16 (8-16); ASPARTATE AMINO TRANSFERASE 70 U/L (10-37); BILIRUBIN,TOTAL 1.2 MG/DL (0.1-1.0); BLOOD UREA NITROGEN 19 MG/DL (7-18); BUN/CREATININE RATIO 26.8 (6.6-38.0); CALCIUM 8.5 MG/DL (8.5-10.1); CHLORIDE 103 MMOL/L (99-107); CREATININE 0.71 MG/DL (0.40-0.90); ETHANOL 0.261 GM/DL (0.0-0.010); GLUCOSE 137 MG/DL (70-104); LIPASE 113 U/L (73-393); MAGNESIUM 1.5 MG/DL (1.5-2.4); POTASSIUM 3.5 MMOL/L (3.5-5.1); SODIUM 140 MMOL/L (135-145); TOTAL CARBON DIOXIDE 21.5 MMOL/L (24-32); TOTAL PROTEIN 7.1 G/DL (6.4-8.2); eGFR 83 ML/MIN
[2021-12-08 05:38] LABS: APTT 29 SECONDS (22-32)
[2021-12-08] MEDS ORDERED: ondansetron/PF 4mg/2ml inj IV ONE (05:55)
--- NOTE | 2021-12-08 06:44 | NUR ---
spoke to dr castrejon regarding pt condition ,pt is anxious and requesting for anxitey medication .vitals are stable , okayed to put oder for anxitey medication.
[2021-12-08] MEDS ORDERED: LORazepam 2 mg/ml vial IV ONE (06:45)
[2021-12-08] MEDS ORDERED: folic acid 1mg/0.2ml inj IV SCH (08:20)
[2021-12-08] MEDS ORDERED: magnesium 4gm in 100ml NS 100 ML IV PRN (08:20)
[2021-12-08] MEDS ORDERED: magnesium 2GM in 50ml NS 50 ML IV PRN (08:20)
[2021-12-08] MEDS ORDERED: potassium CL 10mEq/100ml bag 100 ML IV PRN (08:20)
[2021-12-08] MEDS ORDERED: haloperidol 5mg tablet PO PRN (08:20)
[2021-12-08] MEDS ORDERED: ondansetron/PF 4mg/2ml inj IV PRN (08:20)
[2021-12-08] MEDS ORDERED: potassium Cl 20 mEq SR tablet PO PRN ×2 (08:20)
[2021-12-08] MEDS ORDERED: acetaminophen 325mg tablet PO PRN (08:20)
[2021-12-08] MEDS ORDERED: magnesium Cl slow-release 64mg tablet PO PRN (08:20)
[2021-12-08] MEDS ORDERED: LORazepam 2 mg/ml vial IV PRN ×2 (08:20)
[2021-12-08] MEDS ORDERED: diphenhydrAMINE 25mg capsule PO PRN ×2 (08:20→13:15)
[2021-12-08] MEDS ORDERED: haloperidol lactate 5mg/ml inj IM PRN ×3 (08:20)
[2021-12-08] MEDS ORDERED: mag hydrox/Alum hydrox/simeth 30ml oral suspension PO PRN (08:20)
[2021-12-08] MEDS ORDERED: dextrose 50%-water 50ml dispensing syringe IV PRN ×2 (08:20)
[2021-12-08 08:41] LABS: CLARITY,URINE CLEAR (Clear); COLOR,URINE YELLOW (Yellow); GLUCOSE, URINE NEGATIVE (Neg); KETONES,URINE 15 mg/dl (Neg); LEUKOCYTE ESTERASE ,URINE TRACE (Neg); NITRITES, URINE NEGATIVE (Neg); OCCULT BLOOD,URINE NEGATIVE (Neg); PROTEIN,URINE NEGATIVE (Neg); UROBILINOGEN,URINE 0.2 E.U/dL (0.2-1.0)
[2021-12-08 08:50] LABS: UA COLLECTION TYPE NON-SPECIFIED
[2021-12-08 08:52] LABS: MUCUS STRANDS FEW /LPF (Neg)
[2021-12-08 08:53] LABS: BACTERIA,URINE FEW /HPF (Neg); RBC,URINE 0-2 /HPF (0-2); SQUAMOUS EPITHELIAL CELL,UR MODERATE /LPF (FEW); WBC,URINE 0-4 /HPF (0-4)
[2021-12-08] MEDS: thiamine 100mg/ml 2ml inj. IV SCH ×4 (08:56→23:50)
[2021-12-08 08:59] LABS: BASOPHILS % (AUTO) 0.5 % (0-1); EOSINOPHILS % (AUTO) 0 % (0-6); HEMATOCRIT 35.3 % (35.0-45.0); LYMPHOCYTES % (AUTO) 25.4 % (21-51); MEAN CORPUSCULAR HEMOGLOBIN 32.3 PG (27.0-31.0); MEAN CORPUSCULAR HGB CONC 34.1 g/dL (33.0-36.5); MEAN CORPUSCULAR VOLUME 94.8 FL (78-98); MEAN PLATELET VOLUME 6.7 FL (7.4-10.4); MONOCYTES # (AUTO) 0.5 X10'3 (0-0.9); MONOCYTES % (AUTO) 12.6 % (2-12); NEUTROPHILS # (AUTO) 2.5 X10'3 (1.8-7.7); NEUTROPHILS % (AUTO) 61.5 % (42-75); PLATELET COUNT 86 X10'3 (140-440); RED BLOOD COUNT 3.72 X10'6 (4.20-5.60); RED CELL DISTRIBUTION WIDTH 16.1 % (11.5-14.5); WHITE BLOOD COUNT 4.1 X10'3 (4.5-11.0)
[2021-12-08 09:52] LABS: POTASSIUM 3.8 MMOL/L (3.5-5.1)
[2021-12-08] MEDS ORDERED: CHOL20003 PO (10:20)
[2021-12-08] MEDS ORDERED: GABA-534 PO (10:20)
[2021-12-08] MEDS ORDERED: DIPH-1055 PO (10:20)
[2021-12-08] MEDS ORDERED: KEN0.1O TOP (10:20)
[2021-12-08] MEDS ORDERED: FERR325T7 PO (10:20)
[2021-12-08] MEDS ORDERED: TRAZ-251 PO (10:20)
[2021-12-08] MEDS: folic acid 1mg/0.2ml inj IV SCH (12:06)
[2021-12-08] MEDS: LORazepam 2 mg/ml vial IV PRN ×3 (12:45→23:41)
[2021-12-08] MEDS ORDERED: traZODone 50mg tablet PO PRN (13:15)
[2021-12-08 13:21] LABS: GASTRIC OCCULT BLOOD POSITIVE (Neg)
--- NOTE | 2021-12-08 13:30 | NUR ---
Spoke to Dr. Waddell re: pt's continuous protonix infusion. ok to order Protonix 40mg IV continuous infusion as scheduled.
[2021-12-08 15:05] VITALS: BP 135/82
[2021-12-08] MEDS ORDERED: fentaNYL/PF 50MCG/1 ML 2ML syringe ONE (15:24)
[2021-12-08] MEDS ORDERED: LIDOcaine Viscous 15ml cup ONE (15:25)
[2021-12-08] MEDS ORDERED: MIDAZolam 1 MG/ML 5ML VIAL ONE (15:25)
--- NOTE | 2021-12-08 15:31 | NUR ---
PT IN GI LAB.
[2021-12-08 16:15] VITALS: BP 140/80
[2021-12-08 16:25] VITALS: BP 142/84
[2021-12-08 16:35] VITALS: BP 138/74
[2021-12-08 16:45] VITALS: BP 144/70
--- NOTE | 2021-12-08 17:29 | NUR ---
Back from GI lab at this time via gurney. Patient awake, alert, no sgins of distress noted.
[2021-12-08] MEDS: pantoprazole 40MG/NS 100ML BAG 100 ML IV SCH (18:13)
[2021-12-08] MEDS: gabapentin 400mg capsule PO SCH (18:13)
--- NOTE | 2021-12-08 19:37 | NUR ---
PT FEELING VERY ANXIOUS AND REQUESTED MEDS FOR ANXIETY. PT MEDICATED WITH PRN MEDS. WILL REASSESS
[2021-12-08 21:00] VITALS: BP 130/66
[2021-12-08] MEDS: K and/or MAG REPLACEMENT MC SCH (22:00)
[2021-12-08] MEDS: docusate sod 100mg capsule PO SCH (22:00)
[2021-12-08] MEDS: triamcinolone acet 0.1% cream 15gm TP SCH (23:00)
[2021-12-09] MEDS: pantoprazole 40MG/NS 100ML BAG 100 ML IV SCH ×6 (00:47→20:40)
[2021-12-09 02:00] VITALS: BP 132/69
[2021-12-09 06:22] LABS: BASOPHILS % (AUTO) 0.6 % (0-1); EOSINOPHILS % (AUTO) 1.3 % (0-6); HEMOGLOBIN 11.3 g/dl (12.0-16.0); LYMPHOCYTES # (AUTO) 1.2 X10'3 (1.1-4.8); LYMPHOCYTES % (AUTO) 34.4 % (21-51); MEAN CORPUSCULAR HGB CONC 34.2 g/dL (33.0-36.5); MEAN CORPUSCULAR VOLUME 96.4 FL (78-98); MONOCYTES # (AUTO) 0.4 X10'3 (0-0.9); MONOCYTES % (AUTO) 13.2 % (2-12); NEUTROPHILS # (AUTO) 1.7 X10'3 (1.8-7.7); NEUTROPHILS % (AUTO) 50.5 % (42-75); PLATELET COUNT 60 X10'3 (140-440); RED BLOOD COUNT 3.42 X10'6 (4.20-5.60); RED CELL DISTRIBUTION WIDTH 15.6 % (11.5-14.5); WHITE BLOOD COUNT 3.4 X10'3 (4.5-11.0)
[2021-12-09 06:52] LABS: ALANINE AMINOTRANSFERASE 32 U/L (12-78); ALBUMIN 3.2 G/DL (3.4-5.0); ALKALINE PHOSPHATASE 80 IU/L (46-116); AMYLASE 117 U/L (25-115); ANION GAP 11 (8-16); ASPARTATE AMINO TRANSFERASE 58 U/L (10-37); BLOOD UREA NITROGEN 14 MG/DL (7-18); BUN/CREATININE RATIO 20.9 (6.6-38.0); CALCIUM 8.3 MG/DL (8.5-10.1); CHLORIDE 105 MMOL/L (99-107); CHOL/HDL RATIO 2.2 (0.00-4.99); CHOLESTEROL 227 MG/DL (0-200); CREATININE 0.67 MG/DL (0.40-0.90); GLUCOSE 96 MG/DL (70-104); HDL CHOLESTEROL 104 MG/DL (35-60); LDL CHOLESTEROL 104 MG/DL (50-100); LIPASE 53 U/L (73-393); SODIUM 142 MMOL/L (135-145); TOTAL CARBON DIOXIDE 25.8 MMOL/L (24-32); TOTAL PROTEIN 6.4 G/DL (6.4-8.2); TRIGLYCERIDES 78 MG/DL (20-135); eGFR 89 ML/MIN
[2021-12-09] MEDS: K and/or MAG REPLACEMENT MC SCH ×2 (08:00→20:00)
[2021-12-09] MEDS: thiamine 100mg/ml 2ml inj. IV SCH ×6 (08:00→21:00)
[2021-12-09] MEDS: LORazepam 2 mg/ml vial IV PRN ×4 (08:15→23:32)
[2021-12-09] MEDS: multivitamins, therapeutics tablet PO SCH (08:16)
[2021-12-09] MEDS: docusate sod 100mg capsule PO SCH ×2 (08:16→20:00)
[2021-12-09] MEDS: gabapentin 400mg capsule PO SCH ×4 (08:16→23:32)
[2021-12-09] MEDS: cholecalciferol (vitamin D3) 1,000 unit (25mcg) tablet PO SCH (08:16)
[2021-12-09] MEDS: ferrous sulfate 325mg tablet PO SCH (08:16)
[2021-12-09] MEDS: triamcinolone acet 0.1% cream 15gm TP SCH ×2 (08:20→20:49)
[2021-12-09] MEDS: folic acid 1mg/0.2ml inj IV SCH (08:21)
[2021-12-09 09:17] LABS: BASOPHILS % (AUTO) 0.4 % (0-1); EOSINOPHILS % (AUTO) 0.9 % (0-6); HEMATOCRIT 34.3 % (35.0-45.0); HEMOGLOBIN 11.7 g/dl (12.0-16.0); LYMPHOCYTES # (AUTO) 0.7 X10'3 (1.1-4.8); MEAN CORPUSCULAR HEMOGLOBIN 32.6 PG (27.0-31.0); MEAN CORPUSCULAR VOLUME 95.7 FL (78-98); MEAN PLATELET VOLUME 7.1 FL (7.4-10.4); MONOCYTES # (AUTO) 0.5 X10'3 (0-0.9); MONOCYTES % (AUTO) 13.4 % (2-12); NEUTROPHILS # (AUTO) 2.3 X10'3 (1.8-7.7); NEUTROPHILS % (AUTO) 64.3 % (42-75); PLATELET COUNT 65 X10'3 (140-440); RED BLOOD COUNT 3.58 X10'6 (4.20-5.60); RED CELL DISTRIBUTION WIDTH 15.8 % (11.5-14.5); WHITE BLOOD COUNT 3.6 X10'3 (4.5-11.0)
--- NOTE | 2021-12-09 09:40 | NUR ---
Met with patient in regards to alcohol use and to see if patient was interested in treatment options. Patient would like resources for outpatient treatment. I gave patient [facility] number and my card to call for any questions.
--- NOTE | 2021-12-09 09:57 | NUR ---
Talked to patient about talking to the doctor about medication for cravings. Patient feels like she needs something. I let psychiatric social worker know as well.
[2021-12-09 14:45] LABS: BASOPHILS % (AUTO) 0.5 % (0-1); HEMATOCRIT 33.1 % (35.0-45.0); HEMOGLOBIN 11.3 g/dl (12.0-16.0); LYMPHOCYTES % (AUTO) 25.6 % (21-51); MEAN CORPUSCULAR HEMOGLOBIN 32.7 PG (27.0-31.0); MEAN CORPUSCULAR VOLUME 96.1 FL (78-98); MEAN PLATELET VOLUME 6.9 FL (7.4-10.4); MONOCYTES # (AUTO) 0.5 X10'3 (0-0.9); MONOCYTES % (AUTO) 12.2 % (2-12); NEUTROPHILS # (AUTO) 2.4 X10'3 (1.8-7.7); NEUTROPHILS % (AUTO) 60.7 % (42-75); PLATELET COUNT 61 X10'3 (140-440); RED BLOOD COUNT 3.45 X10'6 (4.20-5.60)
[2021-12-09 19:00] VITALS: BP 128/70
[2021-12-09 20:40] LABS: BASOPHILS % (AUTO) 0.5 % (0-1); EOSINOPHILS % (AUTO) 0.8 % (0-6); HEMATOCRIT 34.9 % (35.0-45.0); HEMOGLOBIN 11.8 g/dl (12.0-16.0); LYMPHOCYTES # (AUTO) 1.1 X10'3 (1.1-4.8); MEAN CORPUSCULAR HEMOGLOBIN 32.7 PG (27.0-31.0); MEAN CORPUSCULAR HGB CONC 33.9 g/dL (33.0-36.5); MEAN CORPUSCULAR VOLUME 96.5 FL (78-98); MEAN PLATELET VOLUME 7.3 FL (7.4-10.4); MONOCYTES # (AUTO) 0.4 X10'3 (0-0.9); MONOCYTES % (AUTO) 9.8 % (2-12); NEUTROPHILS % (AUTO) 64.9 % (42-75); PLATELET COUNT 72 X10'3 (140-440); RED BLOOD COUNT 3.62 X10'6 (4.20-5.60); RED CELL DISTRIBUTION WIDTH 16.2 % (11.5-14.5); WHITE BLOOD COUNT 4.6 X10'3 (4.5-11.0)
[2021-12-09 22:00] VITALS: BP 118/71
[2021-12-10] MEDS: pantoprazole 40MG/NS 100ML BAG 100 ML IV SCH ×2 (01:31→04:25)
[2021-12-10 02:12] VITALS: BP 119/88
[2021-12-10] MEDS: LORazepam 2 mg/ml vial IV PRN ×2 (04:26→08:19)
[2021-12-10 06:00] VITALS: BP 108/56
[2021-12-10 06:02] LABS: BASOPHILS % (AUTO) 0.5 % (0-1); EOSINOPHILS # (AUTO) 0.1 X10'3 (0-0.9); EOSINOPHILS % (AUTO) 1.8 % (0-6); HEMATOCRIT 32.3 % (35.0-45.0); LYMPHOCYTES # (AUTO) 1.2 X10'3 (1.1-4.8); LYMPHOCYTES % (AUTO) 29.3 % (21-51); MEAN CORPUSCULAR HEMOGLOBIN 32.9 PG (27.0-31.0); MEAN CORPUSCULAR VOLUME 96.8 FL (78-98); MEAN PLATELET VOLUME 7.5 FL (7.4-10.4); MONOCYTES # (AUTO) 0.5 X10'3 (0-0.9); MONOCYTES % (AUTO) 12.4 % (2-12); NEUTROPHILS # (AUTO) 2.3 X10'3 (1.8-7.7); PLATELET COUNT 62 X10'3 (140-440); RED BLOOD COUNT 3.34 X10'6 (4.20-5.60); RED CELL DISTRIBUTION WIDTH 15.6 % (11.5-14.5); WHITE BLOOD COUNT 4.1 X10'3 (4.5-11.0)
[2021-12-10 06:25] LABS: ALANINE AMINOTRANSFERASE 32 U/L (12-78); ALBUMIN 3.1 G/DL (3.4-5.0); ALKALINE PHOSPHATASE 70 IU/L (46-116); AMYLASE 69 U/L (25-115); ANION GAP 5 (8-16); ASPARTATE AMINO TRANSFERASE 37 U/L (10-37); BILIRUBIN,TOTAL 1.7 MG/DL (0.1-1.0); BLOOD UREA NITROGEN 9 MG/DL (7-18); CALCIUM 8.5 MG/DL (8.5-10.1); CHLORIDE 103 MMOL/L (99-107); CREATININE 0.69 MG/DL (0.40-0.90); GLUCOSE 148 MG/DL (70-104); LIPASE 58 U/L (73-393); POTASSIUM 3.3 MMOL/L (3.5-5.1); SODIUM 136 MMOL/L (135-145); TOTAL CARBON DIOXIDE 28.1 MMOL/L (24-32); TOTAL PROTEIN 6.3 G/DL (6.4-8.2); eGFR 86 ML/MIN
--- NOTE | 2021-12-10 06:54 | NUR ---
Patient in room MED 317. I have received report from NORMA Perez and had the opportunity to ask questions and assume patient care.
[2021-12-10] MEDS: thiamine 100mg/ml 2ml inj. IV SCH ×2 (08:00→08:09)
[2021-12-10] MEDS: K and/or MAG REPLACEMENT MC SCH (08:00)
[2021-12-10] MEDS: multivitamins, therapeutics tablet PO SCH (08:07)
[2021-12-10] MEDS: ferrous sulfate 325mg tablet PO SCH (08:07)
[2021-12-10] MEDS: cholecalciferol (vitamin D3) 1,000 unit (25mcg) tablet PO SCH (08:07)
[2021-12-10] MEDS: docusate sod 100mg capsule PO SCH (08:07)
[2021-12-10] MEDS: gabapentin 400mg capsule PO SCH (08:07)
[2021-12-10] MEDS ORDERED: PANT-47 PO (08:08)
[2021-12-10] MEDS: triamcinolone acet 0.1% cream 15gm TP SCH (08:09)
[2021-12-10] MEDS ORDERED: LORazepam 2 mg/ml vial IV PRN (08:20)
[2021-12-10] MEDS ORDERED: LORazepam 1 MG tablet PO PRN ×2 (08:20)
[2021-12-10 09:57] LABS: BASOPHILS % (AUTO) 0.4 % (0-1); EOSINOPHILS # (AUTO) 0.1 X10'3 (0-0.9); EOSINOPHILS % (AUTO) 1.7 % (0-6); HEMATOCRIT 33.4 % (35.0-45.0); HEMOGLOBIN 11.3 g/dl (12.0-16.0); LYMPHOCYTES # (AUTO) 1.1 X10'3 (1.1-4.8); LYMPHOCYTES % (AUTO) 26.4 % (21-51); MEAN CORPUSCULAR HEMOGLOBIN 32.8 PG (27.0-31.0); MEAN CORPUSCULAR HGB CONC 33.9 g/dL (33.0-36.5); MEAN CORPUSCULAR VOLUME 96.6 FL (78-98); MEAN PLATELET VOLUME 7.8 FL (7.4-10.4); MONOCYTES # (AUTO) 0.5 X10'3 (0-0.9); MONOCYTES % (AUTO) 11.4 % (2-12); NEUTROPHILS # (AUTO) 2.5 X10'3 (1.8-7.7); NEUTROPHILS % (AUTO) 60.1 % (42-75); PLATELET COUNT 65 X10'3 (140-440); RED BLOOD COUNT 3.46 X10'6 (4.20-5.60); RED CELL DISTRIBUTION WIDTH 15.8 % (11.5-14.5); WHITE BLOOD COUNT 4.1 X10'3 (4.5-11.0)
[2021-12-12] MEDS ORDERED: LORazepam 2 mg/ml vial IV PRN (08:20)
[2021-12-12] MEDS ORDERED: LORazepam 1 MG tablet PO PRN ×2 (08:20)
[2021-12-13] MEDS ORDERED: folic acid 1mg tablet PO SCH (08:00)
[2021-12-13] MEDS ORDERED: thiamine 100mg tablet PO SCH (08:00)
== END 2021-12-10 12:00 | disposition home or self-care (01) | DRG 241 ==
LOC: ER 04:47 → ED HOLD 08:37 → MED 3N 20:55
PROVIDERS: ADMIT Internal Medicine; ATTEND Internal Medicine
PROC: 0DB68ZX Excision of Stomach, Via Natural or Artificial Opening Endoscopic, Diagnostic (ICD-10-PCS; principal; 2021-12-08)
DX: K26.4 Chronic or unspecified duodenal ulcer with hemorrhage (principal); K72.90 Hepatic failure, unspecified without coma; R18.8 Other ascites; D69.59 Other secondary thrombocytopenia; I95.9 Hypotension, unspecified; F10.120 Alcohol abuse with intoxication, uncomplicated; K25.4 Chronic or unspecified gastric ulcer with hemorrhage; K74.60 Unspecified cirrhosis of liver; K29.71 Gastritis, unspecified, with bleeding; F12.90 Cannabis use, unspecified, uncomplicated; F41.9 Anxiety disorder, unspecified; K21.00 Gastro-esophageal reflux disease with esophagitis, without bleeding; K44.9 Diaphragmatic hernia without obstruction or gangrene; Z96.651 Presence of right artificial knee joint; Z88.5 Allergy status to narcotic agent; Z79.899 Other long term (current) drug therapy
CPT/HCPCS: 36415; 43239; 80053; 80061; 80320; 81001; 82150; 82271; 83690; 83735; 84100; 84132; 85025; 85610; 85730; 86885; 86900; 86901; 87081; 87088; 96365; 96368; 96375; 99152; 99285; A4620; C9113; G0378; J2060; J2250; J2354; J2405; J3010; J3411; J3490; J7040

== ENCOUNTER 2022-04-15 22:05 | Inpatient (IN) | payer MEDICAID ==
[~2022-04-15] VITALS: Ht 162.6 cm; Wt 68.2 kg
[~2022-04-15 22:05] MED LIST changes: +CHOL20003 PO; +FERR325T7 PO; +KEN0.1O TOP; +PANT-47 PO; -PANT40SU2 PO
[2022-04-15] MEDS ORDERED: LORazepam 2 mg/ml vial IV ONE ×2 (22:20→23:00)
[2022-04-15] MEDS ORDERED: normal saline 1000ml 1,000 ML IV ONE (22:20)
[2022-04-15] MEDS ORDERED: octreotide inj. 500 MCG in normal saline 100ml IV soln 97.5 ML IV ONE (22:20)
[2022-04-15] MEDS ORDERED: pantoprazole IV 80 MG in normal saline 100ml IV soln 100 ML IV ONE (22:20)
[2022-04-15] MEDS ORDERED: octreotide 100mcg/1 ml ampule IV ONE (22:25)
[2022-04-15] MEDS ORDERED: tranexamic acid inj. 1,000 MG in normal saline 100ml IV soln 100 ML IV ONE (22:30)
[2022-04-15 22:32] LABS: BASOPHILS % (AUTO) 0.5 % (0-1); EOSINOPHILS % (AUTO) 0.1 % (0-6); LYMPHOCYTES # (AUTO) 1.3 X10'3 (1.1-4.8); LYMPHOCYTES % (AUTO) 23.5 % (21-51); MEAN CORPUSCULAR HEMOGLOBIN 33.3 PG (27.0-31.0); MEAN CORPUSCULAR HGB CONC 34.3 g/dL (33.0-36.5); MEAN CORPUSCULAR VOLUME 97.2 FL (78-98); MEAN PLATELET VOLUME 7.1 FL (7.4-10.4); MONOCYTES # (AUTO) 0.8 X10'3 (0-0.9); MONOCYTES % (AUTO) 13.9 % (2-12); NEUTROPHILS # (AUTO) 3.5 X10'3 (1.8-7.7); PLATELET COUNT 91 X10'3 (140-440); RED CELL DISTRIBUTION WIDTH 15.1 % (11.5-14.5); WHITE BLOOD COUNT 5.7 X10'3 (4.5-11.0)
[2022-04-15] MEDS ORDERED: tranexamic acid inj. 1,000 MG in normal saline 100ml IV soln 90 ML IV ONE (22:35)
[2022-04-15 22:44] LABS: APTT 26 SECONDS (22-32)
[2022-04-15 22:45] LABS: ALANINE AMINOTRANSFERASE 67 U/L (12-78); ALBUMIN 3.5 G/DL (3.4-5.0); ALBUMIN/GLOBULIN RATIO 0.9 (1.1-1.5); ALKALINE PHOSPHATASE 132 IU/L (46-116); ANION GAP 14 (8-16); ASPARTATE AMINO TRANSFERASE 89 U/L (10-37); BILIRUBIN,TOTAL 1.2 MG/DL (0.1-1.0); BLOOD UREA NITROGEN 16 MG/DL (7-18); BUN/CREATININE RATIO 18.8 (6.6-38.0); CHLORIDE 101 MMOL/L (99-107); CREATININE 0.85 MG/DL (0.40-0.90); ETHANOL 0.259 GM/DL (0.0-0.010); GLUCOSE 142 MG/DL (70-104); LIPASE 104 U/L (73-393); MAGNESIUM 1.7 MG/DL (1.5-2.4); POTASSIUM 3.4 MMOL/L (3.5-5.1); SODIUM 137 MMOL/L (135-145); TOTAL CARBON DIOXIDE 22.1 MMOL/L (24-32); TOTAL PROTEIN 7.2 G/DL (6.4-8.2); eGFR 68 ML/MIN
[2022-04-15] MEDS: pantoprazole 40MG/NS 100ML BAG 100 ML IV SCH ×2 (22:56→23:44)
[2022-04-15 23:37] LABS: CLARITY,URINE CLEAR (Clear); COLOR,URINE YELLOW (Yellow); GLUCOSE, URINE NEGATIVE (Neg); KETONES,URINE 40 mg/dl (Neg); LEUKOCYTE ESTERASE ,URINE MODERATE (Neg); NITRITES, URINE NEGATIVE (Neg); OCCULT BLOOD,URINE NEGATIVE (Neg); PROTEIN,URINE NEGATIVE (Neg)
[2022-04-15 23:42] LABS: UA COLLECTION TYPE CLN CATCH MIDSTREAM
[2022-04-15 23:44] LABS: BACTERIA,URINE 1+ /HPF (Neg); RBC,URINE 0-2 /HPF (0-2); SQUAMOUS EPITHELIAL CELL,UR MODERATE /LPF (FEW)
[2022-04-15 23:46] LABS: URINE AMPHETAMINE SCREEN NEGATIVE (Neg); URINE BARBITUATE SCREEN NEGATIVE (Neg); URINE BENZODIAZEPINES SCREEN NEGATIVE (Neg); URINE CANNABINOID SCREEN POSITIVE (Neg); URINE COCAINE SCREEN NEGATIVE (Neg); URINE METHADONE SCREEN NEGATIVE (Neg); URINE OPIATE SCREEN NEGATIVE (Neg); URINE PHENCYCLIDINE SCREEN NEGATIVE (Neg)
--- NOTE | 2022-04-16 00:24 | NUR ---
pt placed on 2L NC
[2022-04-16] MEDS ORDERED: dextrose 50%-water 50ml dispensing syringe IV PRN (00:30)
[2022-04-16] MEDS ORDERED: bisacodyl 10mg suppository rectal RC PRN (00:30)
[2022-04-16] MEDS ORDERED: acetaminophen 325mg tablet PO PRN ×2 (00:30)
[2022-04-16] MEDS ORDERED: ondansetron 4mg rapidly disintigrating tab PO PRN (00:30)
[2022-04-16] MEDS ORDERED: acetaminophen 650mg rectal suppository RC PRN (00:30)
[2022-04-16] MEDS ORDERED: HYDROmorphone inj. 0.5 MG/0.5 ML DISP.SYRIN IV PRN (00:30)
[2022-04-16] MEDS ORDERED: mag hydrox/Alum hydrox/simeth 30ml oral suspension PO PRN (00:30)
[2022-04-16] MEDS ORDERED: haloperidol lactate 5mg/ml inj IM PRN (00:30)
[2022-04-16] MEDS ORDERED: diphenhydrAMINE 50 mg/ml inj IV PRN (00:30)
[2022-04-16] MEDS ORDERED: magnesium hydroxide 30ml (MOM) UD suspension PO PRN (00:30)
[2022-04-16] MEDS ORDERED: diphenhydrAMINE 25mg capsule PO PRN (00:30)
[2022-04-16] MEDS ORDERED: haloperidol 5mg tablet PO PRN (00:30)
[2022-04-16] MEDS ORDERED: octreotide inj. 500 MCG in normal saline 100ml IV soln 97.5 ML IV SCH (00:35)
[2022-04-16 01:21] LABS: HEMOGLOBIN A1C 5.4 % (4.5-6.2)
[2022-04-16 01:27] LABS: PHOSPHORUS 1.8 MG/DL (2.3-4.5)
[2022-04-16] MEDS: pantoprazole 40MG/NS 100ML BAG 100 ML IV SCH ×4 (02:12→15:00)
[2022-04-16] MEDS: potassium Cl 20mEq in NS 1,000 ML IV SCH ×2 (02:12→12:00)
[2022-04-16 04:53] LABS: BASOPHILS % (AUTO) 0.5 % (0-1); EOSINOPHILS % (AUTO) 0.1 % (0-6); MEAN PLATELET VOLUME 7.4 FL (7.4-10.4); MONOCYTES # (AUTO) 0.5 X10'3 (0-0.9)
[2022-04-16 04:56] LABS: ALBUMIN 2.8 G/DL (3.4-5.0); ANION GAP 12 (8-16); ASPARTATE AMINO TRANSFERASE 72 U/L (10-37); BLOOD UREA NITROGEN 15 MG/DL (7-18); BUN/CREATININE RATIO 24.2 (6.6-38.0); CALCIUM 7.9 MG/DL (8.5-10.1); CHLORIDE 107 MMOL/L (99-107); CREATININE 0.62 MG/DL (0.40-0.90); GLUCOSE 117 MG/DL (70-104); POTASSIUM 3.5 MMOL/L (3.5-5.1); SODIUM 142 MMOL/L (135-145); TOTAL CARBON DIOXIDE 23.4 MMOL/L (24-32); TOTAL PROTEIN 5.7 G/DL (6.4-8.2); eGFR > 90 ML/MIN
[2022-04-16 04:57] LABS: ALANINE AMINOTRANSFERASE 53 U/L (12-78)
[2022-04-16 05:01] LABS: HEMATOCRIT 32.7 % (35.0-45.0); HEMOGLOBIN 11.2 g/dl (12.0-16.0); LYMPHOCYTES # (AUTO) 1.1 X10'3 (1.1-4.8); LYMPHOCYTES % (AUTO) 28.1 % (21-51); MEAN CORPUSCULAR HEMOGLOBIN 33.8 PG (27.0-31.0); MEAN CORPUSCULAR HGB CONC 34.3 g/dL (33.0-36.5); MEAN CORPUSCULAR VOLUME 98.5 FL (78-98); MONOCYTES % (AUTO) 12.1 % (2-12); NEUTROPHILS # (AUTO) 2.3 X10'3 (1.8-7.7); NEUTROPHILS % (AUTO) 59.2 % (42-75); PLATELET COUNT 57 X10'3 (140-440); RED BLOOD COUNT 3.32 X10'6 (4.20-5.60); WHITE BLOOD COUNT 3.9 X10'3 (4.5-11.0)
[2022-04-16 05:04] LABS: ALKALINE PHOSPHATASE 101 IU/L (46-116)
[2022-04-16] MEDS: LORazepam 2 mg/ml vial IV PRN ×5 (05:41→17:53)
[2022-04-16] MEDS: ondansetron/PF 4mg/2ml inj IV PRN ×2 (05:41→13:03)
[2022-04-16] MEDS ORDERED: CefTRIAXone/D5W-Rocephin 1gm 50 ML IV SCH (08:00)
[2022-04-16] MEDS ORDERED: docusate sod 100mg capsule PO SCH (08:00)
[2022-04-16] MEDS ORDERED: folic acid 1mg/0.2ml inj IV SCH (08:00)
[2022-04-16] MEDS: thiamine 100mg/ml 2ml inj. IV SCH ×2 (08:35→13:00)
--- NOTE | 2022-04-16 10:12 | NUR ---
dr. bandar rojas. pt requesting additional nausea meds.
[2022-04-16] MEDS ORDERED: metoclopramide 5 mg/ml inj IV PRN (10:35)
--- NOTE | 2022-04-16 11:00 | NUR ---
PT AMBULATED TO/FROM RESTROOM WITHOUT INCIDENT.
[2022-04-16 11:12] LABS: HEMATOCRIT 32.9 % (35.0-45.0); HEMOGLOBIN 11.2 g/dl (12.0-16.0); MEAN CORPUSCULAR HGB CONC 34.2 g/dL (33.0-36.5); MEAN CORPUSCULAR VOLUME 99.4 FL (78-98); PLATELET COUNT 59 X10'3 (140-440); RED BLOOD COUNT 3.31 X10'6 (4.20-5.60); RED CELL DISTRIBUTION WIDTH 14.9 % (11.5-14.5); WHITE BLOOD COUNT 3.9 X10'3 (4.5-11.0)
--- NOTE | 2022-04-16 12:00 | NUR ---
CLEAR LIQUID MEAL PROVIDED FOR PT, TOLERATING WELL.
[2022-04-16] MEDS ORDERED: SPIR25TA5 PO (12:45)
[2022-04-16] MEDS ORDERED: PANT40TA54 PO ×2 (12:45→17:03)
[2022-04-16] MEDS ORDERED: MONT-40 PO (12:45)
[2022-04-16] MEDS ORDERED: LORA-269 PO (12:45)
[2022-04-16] MEDS ORDERED: FURO20TA4 PO (12:45)
[2022-04-16] MEDS ORDERED: ACAM333T8 PO (12:45)
[2022-04-16] MEDS ORDERED: traZODone 50mg tablet PO PRN (13:35)
--- NOTE | 2022-04-16 14:00 | NUR ---
PT AMBULATED TO/FROM RESTROOM WITH WALKER.
--- NOTE | 2022-04-16 15:04 | NUR ---
PT AMBULATED TO/FROM RESTROOM WITH WALKER.
[2022-04-16] MEDS ORDERED: gabapentin 400mg capsule PO SCH (16:00)
--- NOTE | 2022-04-16 16:00 | NUR ---
LAB AT BEDSIDE TO RE-DRAW HEMOGRAM. IF LABS COME BACK AND HGB HAS NOT DROPPED, PT MAY BE DISCHARGED HOME TODAY.
[2022-04-16 16:34] LABS: HEMATOCRIT 35.3 % (35.0-45.0); MEAN CORPUSCULAR HEMOGLOBIN 33.7 PG (27.0-31.0); MEAN CORPUSCULAR HGB CONC 34.1 g/dL (33.0-36.5); MEAN CORPUSCULAR VOLUME 98.9 FL (78-98); MEAN PLATELET VOLUME 7.7 FL (7.4-10.4); PLATELET COUNT 62 X10'3 (140-440); RED BLOOD COUNT 3.57 X10'6 (4.20-5.60); WHITE BLOOD COUNT 4.8 X10'3 (4.5-11.0)
--- NOTE | 2022-04-16 16:45 | NUR ---
DR. FLAQUITA DIAZ.
[2022-04-16] MEDS ORDERED: THIA100T70 PO (17:03)
[2022-04-16] MEDS ORDERED: FOLI0.4T6 PO (17:03)
--- NOTE | 2022-04-16 17:05 | NUR ---
DR. SAMS RETURNED PAGE. PT WILL BE DISCHARGED HOME. HER FRIEND WILL COME FROM [place] TO PICK HER UP.
[2022-04-16 17:30] VITALS: BP 128/80
[2022-04-16] MEDS ORDERED: temazepam 15mg capsule PO PRN (21:00)
[2022-04-16] MEDS ORDERED: ACAMPROSATE 333 MG PO SCH (21:00)
[2022-04-17] MEDS ORDERED: montelukast 10mg tablet PO SCH (08:00)
[2022-04-17] MEDS ORDERED: furosemide 20MG tablet PO SCH (08:00)
[2022-04-17] MEDS ORDERED: spironolactone 25 MG tablet PO SCH (08:00)
[2022-04-17] MEDS ORDERED: ferrous sulfate 325mg tablet PO SCH (08:00)
[2022-04-17] MEDS ORDERED: pantoprazole 40mg Tablet.DR PO SCH (08:00)
[2022-04-17] MEDS ORDERED: cholecalciferol (vitamin D3) 1,000 unit (25mcg) tablet PO SCH (08:00)
[2022-04-18] MEDS ORDERED: LORazepam 1 MG tablet PO PRN (00:30)
[2022-04-18] MEDS ORDERED: LORazepam 2 mg/ml vial IV PRN (00:30)
[2022-04-20] MEDS ORDERED: LORazepam 2 mg/ml vial IV PRN (00:30)
[2022-04-20] MEDS ORDERED: LORazepam 1 MG tablet PO PRN (00:30)
[2022-04-20] MEDS ORDERED: thiamine 100mg tablet PO SCH (08:00)
[2022-04-20] MEDS ORDERED: folic acid 1mg tablet PO SCH (08:00)
== END 2022-04-16 18:04 | disposition home or self-care (01) | DRG 253 ==
LOC: ER 22:05 → ED HOLD 04-16 00:32
PROVIDERS: ADMIT Family Medicine; ATTEND Family Medicine
DX: K92.0 Hematemesis (principal); D69.6 Thrombocytopenia, unspecified; K72.90 Hepatic failure, unspecified without coma; K29.01 Acute gastritis with bleeding; E83.39 Other disorders of phosphorus metabolism; K70.30 Alcoholic cirrhosis of liver without ascites; E78.5 Hyperlipidemia, unspecified; E87.6 Hypokalemia; F41.9 Anxiety disorder, unspecified; F12.10 Cannabis abuse, uncomplicated; I10 Essential (primary) hypertension; F10.129 Alcohol abuse with intoxication, unspecified; N39.0 Urinary tract infection, site not specified; Z87.440 Personal history of urinary (tract) infections; Z88.5 Allergy status to narcotic agent; Z79.899 Other long term (current) drug therapy
CPT/HCPCS: 36415; 71045; 80053; 80305; 80320; 81001; 83036; 83690; 83735; 83880; 84100; 85025; 85027; 85610; 85730; 86885; 86900; 86901; 86920; 87088; 93005; 96365; 96368; 96375; 96376; 99291; A4615; C9113; G0378; J0696; J2060; J2354; J2405; J3411; J3480; J3490; J7030